=== PATIENT | male | born 1995 | race Caucasian/White ===

== ENCOUNTER → 2019-10-02 | Outpatient (CLI) | payer OTHER ==
[~2019-10-02] MED LIST: IBUPROFEN 800800 M1 PO
--- NOTE | 2019-10-03 09:39 | EXE ---
[place] [address] STRESS ECHOCARDIOGRAM Name: RADHIKA ISBELL Room: [facility]#: [id number] Admission: 10/02/19 Attend Phys: Samuel Styles DO Discharge: Date of : 89 Date of Service: 10/03/19 0939 Report #: [id number] THIS REPORT FOR: //name// APPROVED REPORT Study performed: 10/02/2019 16:27:21 Exam: Stress Echocardiogram Indication: Tachycardia, Chest pain Patient Location: Out-Patient Stress Nurse: Breana Osorio RN Supervising Physician: Thaddeus Hines MD Ht: 5 ft 10 in HR: 65 bpm BP: 131/83 mmHg Medical History Cardiac Risk Factors: FHX of CAD, Smokeless Tobacco Procedure The patient underwent an Exercise Stress Test using the Spike Protocol. Blood pressure, heart rate, and EKG were monitored. An Echocardiogram was performed by chemistry laboratory technician in four stages in quad fashion. At peak stress, four selected images were obtained and placed side by side with resting images for comparison. Stress Test Details Stress Test: Exercise stress testing was performed using a Spike protocol. HR Resting HR: 65 bpm Max Heart Rate (APMHR): 196 bpm Max HR Achieved: 203 bpm Target HR (85% APMHR): 166 bpm % of APMHR: 103 Recovery HR: 103 bpm HR response to stress: Normal HR response to stress BP Resting BP: 131/83 mmHg Max BP: 197/69 mmHg Recovery BP: 144/80 mmHg BP response to stress: Normal blood pressure response to stress. ECG Resting ECG: Sinus Rhythm Stress ECG: Sinus Tachycardia [address] [address] STRESS ECHOCARDIOGRAM Name: RADHIKA ISBELL Room: [facility]#: [id number] Admission: 10/02/19 Attend Phys: Samuel Styles DO Discharge: Date of : 89 Date of Service: 10/03/19 0939 Report #: [id number] ST Change: None Arrhythmia: None Recovery ECG: Sinus Rhythm Recovery ST Change: None Recovery Arrhythmia: None Clinical Reason for Termination: Target heart rate achieved Exercise duration: 12 min 29 sec Highest Stage Achieved: Stage 5: 5.0 mph at 18% grade. Exercise capacity: 13.80 METs Overall Exercise Capacity for Age: Good The patient exhibited good exercise tolerance. The patient had no significant cardiac symptoms with standard Spike protocol exercise. Stress ECG Conclusion The baseline 12-lead EKG shows sinus rhythm without significant ST or T wave abnormality. EKGs obtained during and post exercise showed sinus rhythm and sinus tachycardia with no significant ST or T wave changes when compared to baseline. There were no stress-induced arrhythmias. Pre-Stress Echo The resting Echocardiogram showed normal left ventricular contractility with an estimated Ejection Fraction of about 60-65%. Normal wall motion in all segments on baseline images. Post-Stress Echo The stress Echocardiogram showed normal left ventricular contractility with an estimated Ejection Fraction of about >70%. Normal augmentation of wall motion in all segments on post stress images. Clinical No clinical or ECG evidence for ischemia. Conclusion Clinical Response: Non-ischemic Exercise Capacity: Superior Stress ECG Response: Non-ischemic Stress Echo Images: Non-ischemic The left ventricle is normal in size and wall thickness in both the rest and stress images. [place] [address] STRESS ECHOCARDIOGRAM Name: RADHIKA ISBELL Room: [facility]#: [id number] Admission: 10/02/19 Attend Phys: Samuel Styles DO Discharge: Date of : 89 Date of Service: 10/03/19938 Report #: [id number] Study Quality: Good <Conclusion> The left ventricle is normal in size and wall thickness in both the rest and stress images. <ELECTRONICALLY SIGNED> By: Trey Razo MD, FACC 10/03/19938 8 8 Trey Razo MD, FACC /INF
== END ==
LOC: M.CRD 15:28
DX: R00.0 Tachycardia, unspecified (principal); R07.9 Chest pain, unspecified; I25.10 Atherosclerotic heart disease of native coronary artery without angina pectoris; Z72.0 Tobacco use